=== PATIENT | male | born 1990 | race Two or more races ===

== ENCOUNTER 2023-03-20 18:05 | Emergency (ER) | payer MEDICAID, OTHER ==
[~2023-03-20] VITALS: Ht 175.3 cm; Wt 70.0 kg
[~2023-03-20 18:05] MED LIST: ALBU18
[2023-03-20] MEDS ORDERED: IPRATROPIUM BROM 0.5 MG/2.5ML INH SOL NEB ONE (22:00)
[2023-03-20] MEDS ORDERED: DexAMETHasone SOD PHOS 10MG/1ML VIAL INJ IM ONE (22:00)
[2023-03-20] MEDS ORDERED: ALBUTEROL SULF 2.5 MG/0.5ML(0.5%) NEB SOLN NEB ONE (22:00)
[2023-03-20 22:28] LABS: Basophils # (auto) 0 10 ^3/uL (0-0.2); Basophils % (auto) 0.3 % (0.0-2.0); Eosinophils # (auto) 0.5 10 ^3/uL (0-0.8); Eosinophils % (auto) 4.8 % (0.0-7.0); Hematocrit 43.5 % (41.0-53.0); Hemoglobin 14.8 g/dL (13.5-17.5); Lymphocytes # (auto) 1.4 10 ^3/uL (0.4-5.4); Lymphocytes % (auto) 12.3 % (10.0-50.0); Mean Corpuscular Hemoglobin 30.5 pg (28.0-32.0); Mean Corpuscular Volume 89.9 fL (80.0-100.0); Monocytes # (auto) 0.9 10 ^3/uL (0-1.3); Monocytes % (auto) 7.7 % (0.0-12.0); Neutrophils # (auto) 8.3 10 ^3/uL (1.6-8.6); Neutrophils % (auto) 74.9 % (37.0-80.0); Nucleated Red Blood Cells % 0.1 %; Red Blood Cells 4.84 10^6/uL (4.5-5.90); Red Cell Distribution Width 13.6 % (11.8-14.3); White Blood Cell 11.1 10^3/uL (4.4-10.8)
[2023-03-20 22:48] LABS: Albumin 4.5 g/dL (3.4-5.0); Potassium 4.1 mmol/L (3.5-5.1)
[2023-03-20 22:52] LABS: BUN/Creatinine Ratio 18.6 (10.0-20.0); Bilirubin, Total 0.8 mg/dL (0.2-1.0); Total Protein 8.4 g/dL (6.4-8.2)
[2023-03-21] MEDS ORDERED: PRED20TA2 PO (04:45)
[2023-03-21] MEDS ORDERED: ALBU108A5 IN (04:45)
[2023-03-21 05:17] VITALS: BP 115/73
== END 2023-03-21 04:46 | disposition home or self-care (01) ==
LOC: ER 18:05
DX: J45.901 Unspecified asthma with (acute) exacerbation (principal); D72.829 Elevated white blood cell count, unspecified
CPT/HCPCS: 36415; 71046; 80053; 85025; 94640; 96372; 99284; J1100; J7644

== ENCOUNTER 2023-04-13 01:27 | Emergency (ER) | payer MEDICAID ==
[~2023-04-13] VITALS: Ht 177.8 cm; Wt 65.3 kg
[~2023-04-13 01:27] MED LIST changes: +ALBU108A5 IN; +PRED20TA2 PO
[2023-04-13] MEDS ORDERED: CLIN300C70 PO (02:29)
[2023-04-13] MEDS ORDERED: HUR60 MT (02:29)
[2023-04-13] MEDS ORDERED: IBUP-1456 PO (02:29)
[2023-04-13] MEDS ORDERED: methylPREDNISolone SOD SUCC 40 MG/ML VL IV ONE (02:30)
[2023-04-13] MEDS ORDERED: CLINDAMYCIN 600MG IV 50 ML IV ONE (02:30)
[2023-04-13] MEDS ORDERED: KETOROLAC TROMETH 30 MG/ML 1ML VIAL IV ONE (02:30)
[2023-04-13 03:35] VITALS: BP 124/76
== END 2023-04-13 03:57 | disposition home or self-care (01) ==
LOC: ER 01:27
DX: K04.7 Periapical abscess without sinus (principal); J45.909 Unspecified asthma, uncomplicated; F12.10 Cannabis abuse, uncomplicated; Z88.1 Allergy status to other antibiotic agents; Z88.6 Allergy status to analgesic agent
CPT/HCPCS: 96365; 96375; 99284; J1885; J2920; J3490

== ENCOUNTER 2023-08-30 03:40 | Emergency (ER) | payer MEDICAID ==
[~2023-08-30] VITALS: Ht 175.3 cm; Wt 74.0 kg
[~2023-08-30 03:40] MED LIST changes: +CLIN300C70 PO; +HUR60 MT; +IBUP-1456 PO
[2023-08-30] MEDS ORDERED: ALBUAER3 IN (04:51)
[2023-08-30] MEDS ORDERED: PRED20TA2 PO (04:51)
[2023-08-30] MEDS ORDERED: ALBUTEROL MEDNEB 2.5 mg/3ml NEB ONE (04:53)
[2023-08-30] MEDS ORDERED: IPRATROPIUM BROM 0.5 MG/2.5ML INH SOL NEB ONE (05:00)
[2023-08-30] MEDS ORDERED: methylPREDNISolone SOD SUCC 125 MG/2 ML VL IM ONE (05:00)
[2023-08-30] MEDS ORDERED: ALBUTEROL SULF 2.5 MG/0.5ML(0.5%) NEB SOLN NEB ONE (05:00)
[2023-08-30 07:01] VITALS: BP 136/85; PULSE 101; RESP 18; TEMP 97.9; O2SAT 97
== END 2023-08-30 07:05 | disposition home or self-care (01) ==
LOC: ER 03:40
DX: J45.901 Unspecified asthma with (acute) exacerbation (principal); F12.90 Cannabis use, unspecified, uncomplicated; Z76.0 Encounter for issue of repeat prescription
CPT/HCPCS: 94640; 99283; J7644

== ENCOUNTER 2024-06-10 11:52 | Emergency (ER) | payer MEDICAID ==
[~2024-06-10] VITALS: Ht 177.8 cm; Wt 77.3 kg
[~2024-06-10 11:52] MED LIST changes: +ALBUAER3 IN; +CLIN1CAP70 PO; -CLIN300C70 PO
[2024-06-10 12:07] VITALS: BP 128/79; PULSE 84; RESP 18; O2SAT 97
[2024-06-11] MEDS ORDERED: BUDE1AER5 IN (13:49)
[2024-06-11] MEDS ORDERED: ALBU108A5 IN (13:49)
== END 2024-06-10 13:06 | disposition left against medical advice (07) ==
LOC: EDBD 11:52 → ER 11:54
DX: S60.445A External constriction of left ring finger, initial encounter (principal); Z53.21 Procedure and treatment not carried out due to patient leaving prior to being seen by health care provider; W49.04XA Ring or other jewelry causing external constriction, initial encounter; Y93.89 Activity, other specified; Y92.89 Other specified places as the place of occurrence of the external cause; Y99.8 Other external cause status

== ENCOUNTER 2024-06-10 14:37 | Inpatient (IN) | payer MEDICAID ==
[~2024-06-10] VITALS: Ht 175.3 cm; Wt 78.0 kg
[2024-06-10] MEDS ORDERED: ACETAMINOPHEN 325 MG TAB PO PRN (17:00)
[2024-06-10 17:08] VITALS: BP 112/78; PULSE 62; RESP 19; TEMP 97.8; O2SAT 99
[2024-06-10] MEDS ORDERED: IBUPROFEN 800 MG TAB PO PRN (17:15)
[2024-06-10] MEDS ORDERED: NEOMYCIN-BACITRACIN-POLYM 15GM TOP OINT TOP SCH (17:15)
[2024-06-10] MEDS: cefTRIAXone 1GM/50ML D5W 50 ML IV ONE (17:25)
[2024-06-10] MEDS: SODIUM CHLORIDE 0.9% 1,000 ML IV SCH (17:25)
[2024-06-10] MEDS: HYDROcodone-ACET 5/325MG TAB PO PRN (17:29)
[2024-06-10 18:00] LABS: Basophils # (auto) 0 10 ^3/uL (0-0.2); Basophils % (auto) 0.6 % (0.0-2.0); Eosinophils # (auto) 0.3 10 ^3/uL (0-0.8); Eosinophils % (auto) 5.3 % (0.0-7.0); Hematocrit 39.6 % (41.0-53.0); Hemoglobin 13.4 g/dL (13.5-17.5); Lymphocytes # (auto) 2.2 10 ^3/uL (0.4-5.4); Lymphocytes % (auto) 37.5 % (10.0-50.0); Mean Corpuscular Hemoglobin 30.4 pg (28.0-32.0); Mean Corpuscular Hgb Conc. 33.8 g/dL (32.0-36.0); Mean Corpuscular Volume 89.8 fL (80.0-100.0); Monocytes # (auto) 0.6 10 ^3/uL (0-1.3); Monocytes % (auto) 9.9 % (0.0-12.0); Neutrophils # (auto) 2.8 10 ^3/uL (1.6-8.6); Neutrophils % (auto) 46.7 % (37.0-80.0); Nucleated Red Blood Cells % 0.1 %; Red Blood Cells 4.41 10^6/uL (4.5-5.90); Red Cell Distribution Width 13.7 % (11.8-14.3)
[2024-06-10 18:49] LABS: Chloride 105 mmol/L (98-107); Potassium 3.8 mmol/L (3.5-5.1); Sodium 138 mmol/L (136-145)
[2024-06-10 18:50] LABS: Anion Gap 8 (5-15); Calcium 9.6 mg/dL (8.7-10.4); Carbon Dioxide 25 mmol/L (20-30)
[2024-06-10 18:55] LABS: BUN/Creatinine Ratio 10.7 (10.0-20.0); Blood Urea Nitrogen 9 mg/dL (9-23); Glucose 72 mg/dL (74-106)
[2024-06-10 21:30] VITALS: PULSE 78; O2SAT 99
[2024-06-10] MEDS: ASCORBIC ACID 500 MG TAB PO SCH (21:36)
[2024-06-10 21:45] VITALS: O2SAT 99
[2024-06-10 22:30] VITALS: BP 96/53; PULSE 60; RESP 20; TEMP 97.7; O2SAT 96
[2024-06-11] VITALS (9 sets, daily range): BP systolic 110–133; BP diastolic 64–67; PULSE 58–78; RESP 16–20; TEMP 36.9; O2SAT 94–100
[2024-06-11 05:17] LABS: Basophils # (auto) 0 10 ^3/uL (0-0.2); Basophils % (auto) 0.7 % (0.0-2.0); Eosinophils # (auto) 0.3 10 ^3/uL (0-0.8); Eosinophils % (auto) 6.3 % (0.0-7.0); Hematocrit 37.2 % (41.0-53.0); Hemoglobin 12.5 g/dL (13.5-17.5); Lymphocytes # (auto) 2.3 10 ^3/uL (0.4-5.4); Lymphocytes % (auto) 42.7 % (10.0-50.0); Mean Corpuscular Hemoglobin 30.3 pg (28.0-32.0); Mean Corpuscular Hgb Conc. 33.5 g/dL (32.0-36.0); Mean Corpuscular Volume 90.5 fL (80.0-100.0); Monocytes # (auto) 0.6 10 ^3/uL (0-1.3); Monocytes % (auto) 10.6 % (0.0-12.0); Neutrophils # (auto) 2.2 10 ^3/uL (1.6-8.6); Neutrophils % (auto) 39.7 % (37.0-80.0); Nucleated Red Blood Cells % 0.1 %; Red Blood Cells 4.11 10^6/uL (4.5-5.90); Red Cell Distribution Width 14.1 % (11.8-14.3); White Blood Cell 5.5 10^3/uL (4.4-10.8)
[2024-06-11 05:32] LABS: Alanine Aminotransferase 19 U/L (7-40); Albumin 3.8 g/dL (3.2-4.8); Alkaline Phosphatase 102 U/L (46-116); Anion Gap 6 (5-15); Aspartate Aminotransferase 13 U/L (13-40); BUN/Creatinine Ratio 14.9 (10.0-20.0); Bilirubin, Total 0.6 mg/dL (0.2-1.0); Blood Urea Nitrogen 14 mg/dL (9-23); Calcium 8.8 mg/dL (8.7-10.4); Carbon Dioxide 27 mmol/L (20-30); Chloride 105 mmol/L (98-107); Glucose 109 mg/dL (74-106); Potassium 3.9 mmol/L (3.5-5.1); Sodium 138 mmol/L (136-145)
[2024-06-11 05:33] LABS: Total Protein 6.5 g/dL (5.7-8.2)
[2024-06-11 07:22] LABS: CRP High Sensitivity 0.02 mg/dL (<1.0)
[2024-06-11] MEDS: ZINC SULFATE 220mg CAP or TAB PO SCH (10:08)
[2024-06-11] MEDS: MULTIPLE VITAMIN TAB PO SCH (10:09)
[2024-06-11] MEDS: cefTRIAXone 1GM/50ML D5W 50 ML IV SCH (10:09)
[2024-06-11] MEDS ORDERED: BUDESONIDE (INHALATION) 0.5 MG/2 ML NEB NEB ONE (13:45)
[2024-06-11] MEDS ORDERED: ALBUTEROL SULF 2.5 MG/0.5ML(0.5%) NEB SOLN NEB ONE (13:45)
[2024-06-11] MEDS ORDERED: ALBU108A5 IN (13:49)
[2024-06-11] MEDS ORDERED: BUDE1AER5 IN (13:49)
[2024-06-11] MEDS: ALBUTEROL SULF 2.5 MG/0.5ML(0.5%) NEB SOLN NEB PRN (15:13)
== END 2024-06-11 18:30 | disposition home or self-care (01) | DRG 351 ==
LOC: ER 14:37 → OVERFLOW 17:03 → CENTRAL 22:30
PROVIDERS: ADMIT Nurse Practitioner Family; ATTEND Nurse Practitioner Family
DX: S69.82XA Other specified injuries of left wrist, hand and finger(s), initial encounter (principal); D64.9 Anemia, unspecified; J45.909 Unspecified asthma, uncomplicated; F19.10 Other psychoactive substance abuse, uncomplicated; X58.XXXA Exposure to other specified factors, initial encounter; Y93.89 Activity, other specified; Y92.89 Other specified places as the place of occurrence of the external cause; Y99.8 Other external cause status; Z59.00 Homelessness unspecified
CPT/HCPCS: 36415; 73140; 80048; 80053; 80061; 83036; 83605; 85025; 86141; 94640; 96365; 99291; G0378

== ENCOUNTER 2024-09-22 08:02 | Emergency (ER) | payer MEDICAID ==
[~2024-09-22] VITALS: Ht 177.8 cm; Wt 77.2 kg
[~2024-09-22 08:02] MED LIST changes: +BUDE1AER5 IN; -CLIN1CAP70 PO; -PRED20TA2 PO
--- NOTE | 2024-09-22 08:54 | ED.PDOC ---
SOB-HPI HPI Comments 34y M who presents to the ED via EMS for chief complaint of shortness of breath. Pt states he has been having shortness of breath since 000 this AM. Pt states he has history of asthma and states he has ran out of his inhaler. Pt states he is having associated congestion, rhinorrhea, and cough ever since. Pt in the ED, in no noted distress and has stable vitals with 99% 02 sat on room air. Pt otherwise denies any other symptoms at this time. Chief Complaint: Shortness of Breath Time Seen by MD: 08:50 Primary Care Provider: NONE Reviewed notes: Glue Line Operator Notes, Medications, Allergies Information Source: Patient Mode of Arrival: EMS Brought in by: EMS Past Medical History PAST MEDICAL HISTORY: Asthma Surgical History: Denies all surgeries Family History Family History: Unknown Social History Smoker: Other Alcohol: Denies ETOH Use Drugs: Marijuana Lives In: Home Constitutional: denies: chills, diaphoresis, fatigue, fever, malaise, sweats, weakness, others EENTM: denies: blurred vision, double vision, ear bleeding, ear discharge, ear drainage, ear pain, ear ringing, eye pain, eye redness, hearing loss, mouth pain, mouth swelling, nasal discharge, nose bleeding, nose congestion, nose pain, photophobia, tearing, throat pain, throat swelling, voice changes, others Respiratory: reports: shortness of breath; denies: cough, hemoptysis, orthopnea, SOB at rest, SOB with excertion, stridor, wheezing, others Cardiovascular: denies: chest pain, dizzy spells, diaphoresis, Dyspnea on exertion, edema, irregular heart beat, left arm pain, lightheadedness, palpitations, PND, syncope, others Gastrointestinal: denies: abdomen distended, abdominal pain, blood streaked bowels, constipated, diarrhea, dysphagia, difficulty swallowing, hematemesis, melena, nausea, poor appetite, poor fluid intake, rectal bleeding, rectal pain, vomiting, others Genitourinary: denies: burning, dysuria, flank pain, frequency, hematuria, incontinence, penile discharge, penile sore, pain, testicle pain, testicle swelling, urgency, others Neurological: denies: dizziness, fainting, headache, left sided numbness, left sided weakness, numbness, paresthesia, pre-existing deficit, right sided numbness, right sided weakness, seizure, speech problems, tingling, tremors, weakness, others Musculoskeletal: denies: back pain, gout, joint pain, joint swelling, muscle pain, muscle stiffness, neck pain, others Integumetry: denies: bruises, change in color, change in hair/nails, dryness, laceration, lesions, lumps, rash, wounds, others Allergic/Immunocompromised: denies: Difficulty Healing, Frequent Infections, Hives, Itching, others Hematologic/Lymphatic: denies: anemia, blood clots, easy bleeding, easy bruising, swollen glands, others Endocrine: denies: excessive hunger, excessive sweating, excessive thirst, excessive urination, flushing, intolerance to cold, intolerance to heat, unexplained weight gain, unexplained weight loss, others Psychiatric: denies: anxiety, bipolar disorder, depression, hopeless, panic dis order, schizophrenia, sleepless, suicidal, others All Other Systems: Reviewed and Negative Physical Exam General Appearance: No Apparent Distress, Normal HEENT: Normal ENT Inspection, Pharynx Normal, TMs Normal Neck: Full Range of Motion, Non-Tender, Normal, Normal Inspection Respiratory: Wheezing (bilateral wheezing ) Cardiovascular: No Edema, No JVD, No Murmur, No Gallop, Normal Peripheral Pulses, Regular Rate/Rhythm Breast Exam: Deferred Gastrointestinal: No Organomegaly, Non Tender, No Pulsatile Mass, Normal Bowel Sounds, Soft Genitalia: Deferred Pelvic: Deferred Rectal: Deferred Extremities: No calf tenderness, Normal capillary refill, Normal inspection, Normal range of motion, Non-tender, No pedal edema Musculoskeletal : Apperance: Normal Neurologic: Alert, transfer controller II-XII nml as Tested, No Motor Deficits, Normal Affect, Normal Mood, No Sensory Deficits Cerebellar Function: Normal Reflexes: Normal Skin: Dry, Normal Color, Warm Lymphatic: No Adenopathy Was a procedure done? Was a procedure done?: No Differential Dx Differential Diagnosis: Anxiety, Asthma, Bronchitis, Pneumonia, Respiratory Distress X-Ray, Labs, Meds, VS Vital Signs Date Time Temp Pulse Resp B/P (MAP) Pulse Ox O2 Delivery O2 Flow Rate FiO2 09/22/24 09:30 97.5 79 17 131/77 (95) 99 97.5 09/22/24 09:19 97 Room Air* 0 21 09/22/24 09:19 18 97 Room Air* 0 21 09/22/24 08:03 98.2 86 18 145/60 (88) 100 09/22/24 08:03 18 99 Room Air* 0 21 Current Medications Medications (Trade) Dose Ordered Sig/Jaison Route Start Time Stop Time Status Last Admin Albuterol (Ventolin Medneb) 5 mg ONCE ONCE NEB 09/22/24 09:00 09/22/24 09:01 DC 09/22/24 09:19 Ipratropium [employer] (Atrovent Medneb) 0.5 mg ONCE ONCE NEB 09/22/24 09:00 09/22/24 09:01 DC 09/22/24 09:19 Prednisone 40 mg ONCE ONCE PO 09/22/24 09:00 09/22/24 09:01 DC 09/22/24 09:22 Time of 1ST Reevaluation: 09:20 Reevaluation 1ST: Unchanged Patient Education/Counseling: Diagnosis, Treatment Family Education/Counseling: No Family Present Departure 1 Departure Time of Disposition: 09:50 (Patient presented for asthma exacerbation we will discharge patient home with the inhaler) Impression: Primary Impression: Asthma exacerbation Qualified Codes: J45.21 - Mild intermittent asthma with (acute) exacerbation Disposition: 01 HOME / SELF CARE / HOMELESS Condition: Stable e-Prescriptions Albuterol Sulfate (VENTOLIN MDI) 90 Mcg Ih 90 MCG IN QID PRN for 7 Days, #1 INH Prov: DARON COLE MD 09/22/24 Discharged With: Self Critical Care Note Critical Care Time?: No Stability Stability form required: No Heart Score Heart Score: Heart Score Response (Comments) Value History N/A 0 EKG N/A 0 Age N/A 0 Risk Factors N/A 0 Troponin N/A 0 Total 0 I personally scribed for DARON COLE MD ([email or web address]) on 09/22/24 at 08:54. Electronically submitted by Leora Rossi ([email or web address]). DARON COLE MD Sep 22, 2024 08:54
[2024-09-22] MEDS: ALBUTEROL SULF 2.5 MG/0.5ML(0.5%) NEB SOLN NEB ONE (09:19)
[2024-09-22] MEDS: IPRATROPIUM BROM 0.5 MG/2.5ML INH SOL NEB ONE (09:19)
[2024-09-22] MEDS: predniSONE 20 MG TAB PO ONE (09:22)
[2024-09-22 09:30] VITALS: O2SAT 99
[2024-09-22] MEDS ORDERED: ALBUAER3 IN (09:53)
[2024-09-22 10:38] VITALS: BP 125/78; PULSE 85; RESP 16; TEMP 98.2; O2SAT 98
== END 2024-09-22 10:46 | disposition home or self-care (01) ==
LOC: EDBD 08:02 → ER 08:02
DX: J45.901 Unspecified asthma with (acute) exacerbation (principal); F12.10 Cannabis abuse, uncomplicated; F17.200 Nicotine dependence, unspecified, uncomplicated
CPT/HCPCS: 94640; 99283; J7512

== ENCOUNTER 2025-03-07 02:17 | Emergency (ER) | payer MEDICAID ==
[~2025-03-07] VITALS: Ht 175.3 cm; Wt 77.3 kg
[2025-03-07 02:25] VITALS: BP 141/94; PULSE 77; RESP 24; TEMP 97.6; O2SAT 96
== END 2025-03-07 02:45 | disposition left against medical advice (07) ==
LOC: ER 02:17 → EDBD 02:17 → ER 02:45
DX: R06.02 Shortness of breath (principal); R05.9 Cough, unspecified; R06.2 Wheezing; Z53.21 Procedure and treatment not carried out due to patient leaving prior to being seen by health care provider

== ENCOUNTER 2025-03-11 02:03 | Emergency (ER) | payer MEDICAID ==
[~2025-03-11] VITALS: Ht 177.8 cm; Wt 160.0 kg
--- NOTE | 2025-03-11 02:33 | ED.PDOC ---
SOB-HPI HPI Comments 34-year-old male came to ER due to shortness of breath. Patient is homeless, and does have history of asthma. States he ran out of his albuterol inhaler over a week ago. Patient coming in shortness of breath and wheezing. Denies any fever. Patient wants his albuterol inhalers refilled. No other complaints at this time Chief Complaint: Shortness of Breath Time Seen by MD: 02:32 Primary Care Provider: NONE Reviewed notes: Nurses Notes Information Source: Patient Mode of Arrival: Ambulatory Severity: Moderate Timing: Hours Duration: Since onset Context: With Light Exertion PE Risk Factors: None History of: Asthma Prehospital treatment: Breathing Tx Review of Systems REVIEW OF SYSTEMS: No fever, no chills, or fatigue HEENT: No sore throat, no earache, no congestion, no neck pain. Cardiac: No chest pain. No palpitations. Lungs: (+) shortness of breath, no cough. (+) wheezing GI: No nausea, no vomiting, no diarrhea, no constipation, no abdominal pain : No dysuria, frequency, or urgency. No hematuria. Musculoskeletal: No joint pain , no joint swelling, no extremity edema. Skin: No rash, no itching. Neuro: No headache, no dizziness, no weakness Vital Signs Vital Signs Date Time Temp Pulse Resp B/P (MAP) Pulse Ox O2 Delivery O2 Flow Rate FiO2 03/11/25 04:18 Room Air* 0 21 03/11/25 04:15 98.6 84 16 122/65 (84) 96 98.6 Physical Exam General: Awake, alert and oriented. No acute distress. Skin: Skin in warm, dry and intact. Appropriate color for ethnicity. Nailbeds pink with no cyanosis. HEENT: The head is normocephalic and atraumatic. Conjunctivae are clear without exudates or hemorrhage. Sclera is non-icteric. EOM are intact. No signs of nystagmus. Eyelids are normal in appearance without swelling or lesions. Oral mucosa is pink and moist Neck: The neck is supple with normal range of motion. No JVD. Cardiac: Heart rate and rhythm are normal. No murmurs, gallops, or rubs are auscultated. Respiratory: No signs of respiratory distress. Positive bilateral wheezes. Abdominal: Abdomen is soft, non-tender without distention. Bowel sounds are present and normoactive in all four quadrants. Extremities: Upper and lower extremities are atraumatic in appearance without deformity or edema. Neurological: The patient is awake, alert and oriented to person, place, and time with normal speech. Speech is clear. There is no facial asymmetry. Psychiatric: Appropriate mood and affect. Good judgement and insight. No visual or auditory hallucinations. Past Medical History PAST MEDICAL HISTORY: Asthma Surgical History: Denies all surgeries Family History Family History: Unknown Social History Smoker: Non-Smoker Alcohol: Denies ETOH Use Drugs: Marijuana Lives In: Homeless EKG EKG : Pulse Rate (adult): 65 Cardiac Rhythm: NSR Was a procedure done? Was a procedure done?: No Differential Dx Differential Diagnosis: Asthma, Bronchitis, Pneumonia, Respiratory Distress, URI, Other X-Ray, Labs, Meds, VS Vital Signs Date Time Temp Pulse Resp B/P (MAP) Pulse Ox O2 Delivery O2 Flow Rate FiO2 03/11/25 04:18 Room Air* 0 21 03/11/25 04:15 98.6 84 16 122/65 (84) 96 98.6 03/11/25 02:50 18 96 Room Air* 0 21 03/11/25 02:33 65 03/11/25 02:19 65 03/11/25 02:03 78 16 122/78 (93) 98 Current Medications Medications (Trade) Dose Ordered Sig/Jaison Route Start Time Stop Time Status Last Admin Albuterol (Ventolin Medneb) 2.5 mg ONCE ONCE NEB 03/11/25 02:30 03/11/25 02:31 DC 03/11/25 02:49 Prednisone 40 mg ONCE ONCE PO 03/11/25 02:30 03/11/25 02:31 DC 03/11/25 04:17 Time of 1ST Reevaluation: 02:30 Reevaluation 1ST: Unchanged Patient Education/Counseling: Need For Follow Up Family Education/Counseling: Need For Follow Up Departure 1 Departure Time of Disposition: 02:35 Impression: Primary Impression: Asthma Disposition: 01 HOME / SELF CARE / HOMELESS Condition: Stable Additional Instructions: ED DISCHARGE INSTRUCTIONS Instructions: Please read all instructions provided in this packet carefully. Although you have been discharged from the Emergency Department, this does not mean that you have a "clean bill of health". No definitive diagnosis for your symptoms has been made today. It is possible that you are in the process of developing a serious illness. This is why you must return to the ED without fail if any new or worsening symptoms (especially if your symptoms include chest pain, trouble breathing, abdominal pain, fever, headache, confusion, trouble seeing, or trouble walking) It is also very important that you see a primary care doctor within the next 3-5 days to follow up. If you are unable to get an appointment, return to the ED for re-evaluation. SHORTNESS OF BREATH EDUCATION Shortness of breath has many causes. Sometimes conditions such as anxiety can lead to shortness of breath. Some people get mild shortness of breath when they exercise. Trouble breathing also can be a symptom of a serious problem, such as asthma, lung disease, emphysema, heart problems, and pneumonia. If your shortness of breath continues, you may need tests and treatment. Watch for any changes in your breathing and other symptoms. Follow-up care is a echevarria part of your treatment and safety. Be sure to make and go to all appointments, and call your doctor if you are having problems. It's also a good idea to know your test results and keep a list of the medicines you take. How can you care for yourself at home? Do not smoke or allow others to smoke around you. If you need help quitting, talk to your doctor about stop-smoking programs and medicines. These can increase your chances of quitting for good. Get plenty of rest and sleep. Take your medicines exactly as prescribed. Call your doctor if you think you are having a problem with your medicine. Find healthy ways to deal with stress. Exercise daily. Get plenty of sleep. Eat regularly and well. When should you call for help? Call 911 anytime you think you may need emergency care. For example, call if: You have severe shortness of breath. You have symptoms of a heart attack. These may include: Chest pain or pressure, or a strange feeling in the chest. Sweating. Shortness of breath. Nausea or vomiting. Pain, pressure, or a strange feeling in the back, neck, jaw, or upper belly or in one or both shoulders or arms. Lightheadedness or sudden weakness. A fast or irregular heartbeat. After you call 911, the centrifuge separator operator may tell you to chew 1 adult-strength or 2 to 4 low-dose aspirin. Wait for an ambulance. Do not try to drive yourself. Call your doctor now or seek immediate medical care if: Your shortness of breath gets worse or you start to wheeze. Wheezing is a high- pitched sound when you breathe. You wake up at night out of breath or have to prop your head up on several pillows to breathe. You are short of breath after only light activity or while at rest. Watch closely for changes in your health, and be sure to contact your doctor if: You do not get better over the next 1 to 2 days. Credits for Shortness of Breath: Care Instructions Current as of: June 01, 2024 Author: [employer] Staff e-Prescriptions Prednisone (Prednisone) 20 Mg Tab 20 MG PO DAILY for 5 Days, #5 MG Prov: CINDY STEARNS MD 03/11/25 Albuterol Sulfate (VENTOLIN MDI) 90 Mcg Ih 90 MCG IN Q4HPRN PRN for 30 Days, #1 INH Prov: CINDY STEARNS MD 03/11/25 Comments 34-year-old male with known history of asthma ran out of his asthma inhaler. He is not hypoxic. Feeling improved with treatment by EMS and in the ED. Patient is felt stable for discharge home to follow up with the primary care provider. Provided with a refill of albuterol inhaler. Patient well-appearing, nontoxic. Advised prompt follow-up with PCP, return to the ED with any new, worsening or concerning symptoms. - I reviewed the following notes from the pt's past medical encounters: N/A The following tests were ordered, and results were reviewed by me: (See diagnostic results section) The following test were independently interpreted by me: N/A Additional information was gathered from interviewing the following independent historians: N/A I reviewed and agreed with the following test results read by other providers: N/A I discussed treatments and results with patient Decision regarding hospitalization or escalation of hospital level of care: Risks and benefits of admission for further treatment of patient's condition was considered however due to patient's stable condition patient will be discharged to follow up closely or return to care for worsening of condition or inability to follow up. Critical Care Note Critical Care Time?: No Stability Stability form required: No Heart Score Heart Score: Heart Score Response (Comments) Value History N/A 0 EKG N/A 0 Age N/A 0 Risk Factors N/A 0 Troponin N/A 0 Total 0 I personally scribed for CINDY STEARNS MD ([email or web address]) on 03/11/25 at 02:33. Electronically submitted by Mukund Rainey ([email or web address]). CINDY STEARNS MD March 11, 2025 02:33
[2025-03-11] MEDS ORDERED: PRED20TA2 PO (02:36)
[2025-03-11] MEDS ORDERED: ALBUAER3 IN (02:36)
[2025-03-11] MEDS: ALBUTEROL SULF 2.5 MG/0.5ML(0.5%) NEB SOLN NEB ONE (02:49)
[2025-03-11 04:15] VITALS: BP 122/65; PULSE 84; RESP 16; TEMP 98.6; O2SAT 96
[2025-03-11] MEDS: predniSONE 20 MG TAB PO ONE (04:17)
--- NOTE | 2025-03-17 14:34 | ECG ---
[facility] Test Date: 2025-03-11 Test Time: 02:19:01 Pat Name: MARYJO NELSON Department: ED Room: Gender: M Manager Of It: maxine : 1990 Requested By: CINDY STEARNS Order Number: [id number] Reading MD: Tal Herrera Measurements Intervals [place] Rate: 65 P: 41 PA: 158 QRS: 75 QRSD: 93 T: 66 QT: 421 QTc: 438 Interpretive Statements Sinus rhythm Ventricular premature complex Electronically Signed On 03-18-2025 20:55:37 PDT by Tal Herrera Please click the below link to view image of tracing.
== END 2025-03-11 04:26 | disposition home or self-care (01) ==
LOC: EDBD 02:03 → ER 02:03
DX: J45.909 Unspecified asthma, uncomplicated (principal)
CPT/HCPCS: 94640; 99283; J7512; 93005

== ENCOUNTER → 2025-03-14 05:16 | Emergency (ER) | payer MEDICAID ==
[~2025-03-14] VITALS: Ht 172.7 cm; Wt 79.4 kg
[~2025-03-14 05:16] MED LIST changes: +PRED20TA2 PO
[2025-03-14 05:25] VITALS: BP 146/95; PULSE 66; RESP 24; TEMP 97.9; O2SAT 100
== END | disposition left against medical advice (07) ==
LOC: EDUNIT# 05:16 → ER 05:16 → EDBD 05:16
DX: R06.02 Shortness of breath (principal); Z53.21 Procedure and treatment not carried out due to patient leaving prior to being seen by health care provider

== ENCOUNTER 2025-04-16 18:31 | Emergency (ER) | payer MEDICAID ==
[~2025-04-16] VITALS: Ht 175.3 cm; Wt 68.9 kg
--- NOTE | 2025-04-16 18:43 | ED.PDOC ---
SOB-HPI HPI Comments 34-year-old homeless asthmatic male presents to the ED chief complaint shortness of breath. Patient states over the past 2 weeks his asthma has worsened. He also notes it has ran out of his albuterol rescue inhaler. He reports coughing up yellow mucus. He does note use of marijuana in methamphetamine last used ye sterday. States last time he saw his primary care was over 10 years ago for management. He denies chest pain, difficulty breathing, fever, chills, nausea or vomiting. Chief Complaint: Shortness of Breath Time Seen by MD: 18:35 Primary Care Provider: NONE Reviewed notes: Nurses Notes, Medications, Allergies Information Source: Patient Past Medical History PAST MEDICAL HISTORY: Asthma Surgical History: Denies all surgeries Family History Family History: Unknown Social History Smoker: Non-Smoker Alcohol: Denies ETOH Use Drugs: Marijuana, Methamphetamine Lives In: Homeless Constitutional: denies: chills, diaphoresis, fatigue, fever, malaise, sweats, weakness, others EENTM: denies: blurred vision, double vision, ear bleeding, ear discharge, ear drainage, ear pain, ear ringing, eye pain, eye redness, hearing loss, mouth pain, mouth swelling, nasal discharge, nose bleeding, nose congestion, nose pain, photophobia, tearing, throat pain, throat swelling, voice changes, others Respiratory: reports: cough, shortness of breath, wheezing; denies: hemoptysis, orthopnea, SOB at rest, SOB with excertion, stridor, others Cardiovascular: denies: chest pain, dizzy spells, diaphoresis, Dyspnea on exertion, edema, irregular heart beat, left arm pain, lightheadedness, palpitations, PND, syncope, others Gastrointestinal: denies: abdomen distended, abdominal pain, blood streaked bowels, constipated, diarrhea, dysphagia, difficulty swallowing, hematemesis, melena, nausea, poor appetite, poor fluid intake, rectal bleeding, rectal pain, vomiting, others Genitourinary: denies: burning, dysuria, flank pain, frequency, hematuria, incontinence, penile discharge, penile sore, pain, testicle pain, testicle swelling, urgency, others Neurological: denies: dizziness, fainting, headache, left sided numbness, left sided weakness, numbness, paresthesia, pre-existing deficit, right sided numbness, right sided weakness, seizure, speech problems, tingling, tremors, weakness, others Musculoskeletal: denies: back pain, gout, joint pain, joint swelling, muscle pain, muscle stiffness, neck pain, others Integumetry: denies: bruises, change in color, change in hair/nails, dryness, laceration, lesions, lumps, rash, wounds, others Allergic/Immunocompromised: denies: Difficulty Healing, Frequent Infections, Hives, Itching, others Hematologic/Lymphatic: denies: anemia, blood clots, easy bleeding, easy bruising, swollen glands, others Endocrine: denies: excessive hunger, excessive sweating, excessive thirst, excessive urination, flushing, intolerance to cold, intolerance to heat, unexplained weight gain, unexplained weight loss, others Psychiatric: denies: anxiety, bipolar disorder, depression, hopeless, panic disorder, schizophrenia, sleepless, suicidal, others Physical Exam General Appearance: No Apparent Distress, Normal HEENT: Normal ENT Inspection, Pharynx Normal, TMs Normal Neck: Full Range of Motion, Non-Tender Respiratory: Decreased Breath Sounds, No Accessory Muscle Use, No Respiratory Distress, Wheezing Cardiovascular: No Edema, No JVD, No Murmur, No Gallop, Normal Peripheral Pulses, Regular Rate/Rhythm Breast Exam: Deferred Gastrointestinal: No Organomegaly, Non Tender, Soft Genitalia: Deferred Pelvic: Deferred Rectal: Deferred Extremities: No calf tenderness, Normal range of motion Musculoskeletal : Apperance: Normal Neurologic: Alert, No Motor Deficits, Normal Affect, Normal Mood, No Sensory Deficits Cerebellar Function: Normal Reflexes: Normal Skin: Dry, Normal Color, Warm Lymphatic: No Adenopathy Was a procedure done? Was a procedure done?: No Differential Dx Differential Diagnosis: Asthma, Bronchitis, Pneumonia, Pneumothorax, URI X-Ray, Labs, Meds, VS Vital Signs Date Time Temp Pulse Resp B/P (MAP) Pulse Ox O2 Delivery O2 Flow Rate FiO2 04/16/25 19:54 16 98 Room Air* 0 21 04/16/25 19:32 98.0 100 19 120/63 (82) 95 98.0 04/16/25 18:57 24 95 Room Air* 0 21 21 04/16/25 18:46 Room Air* 0 21 04/16/25 18:39 97.3 109 16 133/62 (85) 94 97.3 Current Medications Medications (Trade) Dose Ordered Sig/Jaison Route Start Time Stop Time Status Last Admin Albuterol (Ventolin Medneb) 5 mg ONCE ONCE NEB 04/16/25 18:45 04/16/25 18:46 DC 04/16/25 18:57 Ipratropium [place] (Atrovent Medneb) 0.5 mg ONCE ONCE NEB 04/16/25 18:45 04/16/25 18:46 DC 04/16/25 18:58 Dexamethasone Sodium Phosphate (Decadron Injection) 10 mg ONCE ONCE IM 04/16/25 18:45 04/16/25 18:46 DC 04/16/25 19:54 X-Ray, Labs, Meds, VS Comment GIVEN DUO NEB AND DECADRON 10 MG IM REPORTS IMPROVEMENT IN BREATHING REQUESTING DISCHARGE AT THIS TIME. LUNG SOUNDS CLEAR AND EQUAL BILATERAL. WE WILL SCRIPT PATIENT IS REFILL OF ALBUTEROL WE WILL START PATIENT ON A DAILY INHALED STEROID AND MEDICATION FOR COUGH AND DECONGESTION. ADVISED TO TAKE MEDICATIONS PRESCRIBED SIDE EFFECTS DISCUSSED. FOLLOW UP WITH HIS PRIMARY OR CALL THE BACK OF HIS INSURANCE CARD AND SELECTIVE PRIMARY CARE IN HIS NETWORK FOR FURTHER REFILLS. ER RETURN PRECAUTIONS GIVEN PATIENT INDICATES UNDERSTANDING AND AGREES WITH DISCHARGE PLAN OF CARE. Time of 1ST Reevaluation: 18:46 Reevaluation 1ST: Unchanged Time of 2ND Reevaluation: 20:07 Reevaluation 2ND: Improved Patient Education/Counseling: Diagnosis, Treatment, Prognosis, Need For Follow Up Family Education/Counseling: No Family Present Departure 1 Departure Time of Disposition: 20:07 Impression: Primary Impression: Asthma exacerbation Qualified Codes: J45.21 - Mild intermittent asthma with (acute) exacerbation Disposition: 01 HOME / SELF CARE / HOMELESS Condition: Stable e-Prescriptions Guaifenesin (Mucinex) 600 Mg Tab 1 TAB PO BID PRN for 7 Days, #14 TAB Prov: BETSY MARTINEZP 04/16/25 Budesonide-Formoterol Fumarate (Budesonide/Formoterol Fum 80-4.5 Mcg/Act) 1 Aer Aer 1 AER IN DAILY for 30 Days, #1 AER 2 Refills Prov: BETSY MARTINEZP 04/16/25 Albuterol Sulfate (Albuterol Sulfate Hfa) 108 Mcg/Act Aer 108 MCG IN TID PRN for 10 Days, #1 AER 2 Refills Prov: BETSY MARTINEZ 04/16/25 Discharged With: Self Critical Care Note Critical Care Time?: No Stability Stability form required: No Heart Score Heart Score: Heart Score Response (Comments) Value History N/A 0 EKG N/A 0 Age <45 0 Risk Factors N/A 0 Troponin N/A 0 Total 0 BETSY MARTINEZ Apr 16, 2025 18:43
[2025-04-16] MEDS: ALBUTEROL SULF 2.5 MG/0.5ML(0.5%) NEB SOLN NEB ONE (18:57)
[2025-04-16] MEDS: IPRATROPIUM BROM 0.5 MG/2.5ML INH SOL NEB ONE (18:58)
[2025-04-16 19:32] VITALS: BP 120/63; PULSE 100; TEMP 98
--- NOTE | 2025-04-16 19:41 | DVH ---
EXAM: XY CHEST TWO VIEWS ROUTINE CLINICAL HISTORY: sob TECHNIQUE: Frontal and lateral views of the chest WID: COMPARISON: XY CHEST TWO VIEWS ROUTINE on DOS: 03/20/23 FINDINGS: Lines and tubes: None Chest: The heart size and pulmonary vasculature is within normal limits. No pleural effusion, pneumothorax, or consolidation. The osseous structures are grossly intact. IMPRESSION: No acute cardiopulmonary abnormality.
[2025-04-16 19:54] VITALS: RESP 16; O2SAT 98
[2025-04-16] MEDS: DexAMETHasone SOD PHOS 10MG/1ML VIAL INJ IM ONE (19:54)
[2025-04-16] MEDS ORDERED: BUDE1AER5 IN (20:09)
[2025-04-16] MEDS ORDERED: ALBU108A5 IN (20:09)
[2025-04-16] MEDS ORDERED: GUAI600T78 PO (20:10)
== END 2025-04-16 20:30 | disposition home or self-care (01) ==
LOC: ER 18:31
DX: J45.901 Unspecified asthma with (acute) exacerbation (principal); F12.90 Cannabis use, unspecified, uncomplicated; F19.90 Other psychoactive substance use, unspecified, uncomplicated; Z59.00 Homelessness unspecified
CPT/HCPCS: 71046; 94640; 96372; 99283; J1100

== ENCOUNTER 2025-06-13 16:19 | Emergency (ER) | payer MEDICAID ==
[~2025-06-13] VITALS: Ht 175.3 cm; Wt 75.0 kg
--- NOTE | 2025-06-13 16:42 | ED.PDOC ---
SOB-HPI HPI Comments 34-year-old male brought in by EMS presents with a chief complaint of SOB x 4 days with associated cough. Patient is homeless and has been out in the sun, reporting that he has been dehydrated and has had a productive cough with white phlegm. Patient was 95% on room air and was given a DuoNeb treatment treatment by EMS and was sating at 99% on the breathing treatment. Patient was also given 1L of fluid en route by EMS. Patient reports that he feels better and not SOB after the dual nebulizer treatment. Patient has been out of his albuterol inhaler. PMHx: Asthma, homelessness PSHx: None HPI: Poor Historian. REVIEW OF SYSTEMS: CONSTITUTIONAL: Denies acute: fever, diaphoresis, chills, generalized weakness. HEAD: Denies acute: headache, photophobia Eyes: Denies acute: Double vision, vision loss, eye pain, eye discharge. EARS: Denies acute: tinnitus, hearing loss, ear discharge, ear pain, THROAT: Denies acute: sore throat, swelling, difficulty swallowing , pain with swallowing, change in voice. NECK: Denies acute: neck pain, neck swelling, stiff neck. HEART: Denies acute : chest pain, palpitations, LUNGS: Denies acute: hemoptysis ABDOMEN: Denies acute: abdominal pain, Nausea, Vomiting, diarrhea, melena , hematemesis, hematochezia SKIN: Denies acute: rash, redness, lesions, itchiness. EXTREMITIES: Denies acute: calf pain, numbness, tingling, weakness, denies pain in extremity. Denies acute: Low back pain. Neuro: Denies acute: focal neurological deficit, motor or sensory focal neurological deficit, tremors, seizure like activity, confusion, dizziness, change in mental status, loss of bowel or bladder function, cauda equina like symptoms. : Denies acute: dysuria, hematuria, flank pain, increase in urinary frequency. PSYCH: Denies acute: hallucination, suicidal ideation, homicidal ideation. PHYSICAL EXAM: General: ---mild-----acute distress, awake and alert. Head: normocephalic, atraumatic. Neck: supple, trachea is midline, no swelling. Throat: Normal phonation. Eyes:, no erythema, no purulent discharge, no proptosis, no icterus. Heart: regular rate, regular rhythm, no significant murmur appreciated. Lungs: no apparent respiratory distress, Able to speak in full sentences. Slight right-sided wheezing, no rhonchi, no crackles. No stridors Abdomen: non tender to palpation, non distended, soft, no guarding, no rebound, + bowel sounds. Neuro: Awake, Alert, oriented to name, self, situation, follows commands GCS=15. Speech is normal. Skin: no petechia, no purpura, no cyanosis, non-pale, not jaundice. Lower extremities: --no - Pitting edema no deformity, no focal swelling, no calf TTP. Makes eye contact. moves all four extremities. Face: no apparent facial droop. ED COURSE: DISCLAIMER: This medical document was created using an electronic medical record system with voice recognition software and computerized dictation system. Although this document has been carefully reviewed, there might still be some phonetic and typographical errors. Occasional wrong-word or "sound-alike" substitutions may have occurred due to the inherent limitations of voice recognition software. These areas are purely typographical due to imperfections of the software programs and do not reflect any compromise in the patient's medical care. Please read the chart carefully and recognize, using context, where these substitutions have occurred. Chief Complaint: Shortness of Breath Time Seen by MD: 16:26 Primary Care Provider: NONE Reviewed notes: Medications, Allergies Information Source: Patient, Emergency Med Personnel Mode of Arrival: EMS Past Medical History PAST MEDICAL HISTORY: Asthma Surgical History: Denies all surgeries Family History Family History: Unknown Social History Smoker: Non-Smoker Alcohol: Denies ETOH Use Drugs: Marijuana, Methamphetamine Lives In: Homeless Was a procedure done? Was a procedure done?: No Differential Dx Differential Diagnosis: Other (DDx include ACS, unstable angina, anxiety, PE, pneumothroax, neoplasm, cardiac ischemia, COPD, asthma, CHF, pleural effusion, tobacco abuse, pneumonia, hypoxia, hypercapnia, anemia., infection/sepsis., pulmonary edema. Asthma, Cardiac tamponade, infection.) X-Ray, Labs, Meds, VS Vital Signs Date Time Temp Pulse Resp B/P (MAP) Pulse Ox O2 Delivery O2 Flow Rate FiO2 06/13/25 22:01 66 16 98 Room Air 06/13/25 21:58 97.5 66 16 124/81 (95) 98 97.5 06/13/25 17:22 109 18 92 Room Air* 0 21 06/13/25 17:22 18 92 Room Air* 0 21 06/13/25 17:22 109 18 115/69 (84) 92 06/13/25 16:47 18 93 Room Air* 0 21 06/13/25 16:38 88 06/13/25 16:26 97.6 110 20 125/76 95 97.6 Lab Test 06/13/25 20:43 06/13/25 18:31 06/13/25 17:03 Range/Units Troponin I High Sensitivity < 3 L 5 < 3 L </=54 ng/L White Blood Count 9.4 4.4-10.8 10^3/uL Red Blood Count 4.89 4.5-5.90 10^6/uL Hemoglobin 15.3 13.5-17.5 g/dL Hematocrit 45.1 41.0-53.0 % Mean Corpuscular Volume 92.3 80.0-100.0 fL Mean Corpuscular Hemoglobin 31.4 28.0-32.0 pg Mean Corpuscular Hemoglobin Concent 33.9 32.0-36.0 g/dL Red Cell Distribution Width 13.4 11.8-14.3 % Platelet Count 337 140-450 10^3/uL Mean Platelet Volume 8.7 6.9-10.8 fL Neutrophils (%) (Auto) 63.3 37.0-80.0 % Lymphocytes (%) (Auto) 18.2 10.0-50.0 % Monocytes (%) (Auto) 11.4 0.0-12.0 % Eosinophils (%) (Auto) 6.4 0.0-7.0 % Basophils (%) (Auto) 0.7 0.0-2.0 % Neutrophils # (Auto) 5.9 1.6-8.6 10 ^3/uL Lymphocytes # (Auto) 1.7 0.4-5.4 10 ^3/uL Monocytes # (Auto) 1.1 0-1.3 10 ^3/uL Eosinophils # (Auto) 0.6 0-0.8 10 ^3/uL Basophils # (Auto) 0.1 0-0.2 10 ^3/uL Nucleated Red Blood Cells 0.0 % Sodium Level 138 136-145 mmol/L Potassium Level 3.9 3.5-5.1 mmol/L Chloride Level 103 98-107 mmol/L Carbon Dioxide Level 24 20-31 mmol/L Anion Gap 11 5-15 Blood Urea Nitrogen 19 9-23 mg/dL Creatinine 0.82 0.700-1.30 mg/dL Glomerular Filtration Rate Calc 117 >90 mL/min BUN/Creatinine Ratio 23.2 H 10.0-20.0 Serum Glucose 127 H 74-106 mg/dL Lactic Acid Level 1.4 0.4-2.0 mmol/L Calcium Level 9.0 8.7-10.4 mg/dL Total Bilirubin 0.6 0.2-1.0 mg/dL Aspartate Amino Transferase (AST) 49 H 13-40 U/L Alanine Aminotransferase (ALT) 46 H 7-40 U/L Alkaline Phosphatase 105 46-116 U/L Creatine Kinase 357 H 46-171 U/L Total Protein 7.5 5.7-8.2 g/dL Albumin 4.7 3.2-4.8 g/dL PATIENT: RE NELSONCCT: [id number]: [id number] : 1990 LOC: ER ROOM / BED: / AGE / SEX: 34 / M ADM STATUS: REG ER SERVICE 1635 ORDERING PHYSICIAN: MARIO MCALLISTER DO PROCEDURE(s): CXRP - CHEST PORTABLE REASON: sob/asthma ORDER NUMBER(s): [id number], ACCESSION NUMBER(s): [id number] EXAM: XY CHEST PORTABLE HISTORY: sob/asthma COMPARISON: XY CHEST TWO VIEWS ROUTINE on DOS: 04/16/25, XY CHEST TWO VIEWS ROUTINE on DOS: 03/20/23 TECHNIQUE: Portable AP view of the chest was performed. FINDINGS: No pneumothorax, consolidative infiltrates, or pulmonary edema. There is central peribronchial thickening. The heart is not enlarged. There are multiple old right rib fractures. IMPRESSION: Reactive airways disease. The lungs are otherwise clear. ATED BY: PASTORA HUNG MD DICTATED DATE/TIME: 06/13/251699 SIGNED BY: PASTORA HUNG MD SIGNED DATE/TIME: 06/13/251699 Time of 1ST Reevaluation: 16:56 Reevaluation 1ST: Unchanged Patient Education/Counseling: Diagnosis, Treatment Family Education/Counseling: No Family Present Comments MDM: patient presented with the above HPI.--dyspnea/asthma exacerbation----workup was initiated. patient was found with the above mentioned diagnosis. the following medications were ordered: please refer to order lists of meds and tests obtained by myself Dr. Mcallister. Patient ED course and VS have been stabilized. Patient has been reassessed in the ED and remained in a stable condition. Pertinent incidental findings were discussed with the patient and/or family. Patient/family voices understanding and is agreeable with plan. Patient has been observed in the ED adequate length of time to insure improvement/stability. Escalation of care considered: Consideration of escalation to observation or admission Patient was DISCHARGED home in a stable condition. All the reports of any imaging studies that were ordered by myself were reviewed by myself. Departure 1 Departure Time of Disposition: 18:30 Impression: Primary Impression: Asthma exacerbation Additional Impressions: Medication refill Heat exhaustion Disposition: 01 HOME / SELF CARE / HOMELESS Condition: Stable Additional Instructions: Additional instructions: You MUST follow-up with your primary care/family doctor in 1 to 2 days. If you are unable to see your primary care/family doctor, please return to our emergency room for re-assessment and re-evaluation in 1 to 2 days. Return to the emergency room here in our facility or to the nearest ER [facility] if your symptoms change or worsen. CONSULTATIONS: you MUST Follow-up for consultation as soon as possible with: -pulmonology in 1-2 days. Please call for appointment. You MUST call the consultants office yourself to make an appointment. You may need to arrange that through your insurance and/or your primary/family doctor. If you are unable to see the consultants intern in 1 to 2 days, you must return to our emergency room (or any other ER of your choice) for re-assessment and re- evaluation. Adequate fluid hydration. Avoid excessive heat exposure. e-Prescriptions Prednisone (Prednisone) 20 Mg Tab 20 MG PO DAILY for 5 Days, #5 TAB Prov: MARIO MCALLISTER DO 06/13/25 Albuterol Sulfate (Albuterol Sulfate Hfa) 108 Mcg/Act Aer 108 MCG IN Q4HPRN PRN for 20 Days, #2 AER Prov: MARIO MCALLISTER DO 06/13/25 Discharged With: Self Critical Care Note Critical Care Time?: No I personally scribed for MARIO MCALLISTER DO ([email or web address]) on 06/13/25 at 16:42. Electronically submitted by Jonny Valdivia ([email or web address]). I personally scribed for MARIO MCALLISTER DO ([email or web address]) on 06/13/25 at 18:41. Electronically submitted by Jonny Valdivia ([email or web address]). MARIO MCALLISTER DO Jun 13, 2025 16:42
[2025-06-13] MEDS: IPRATROPIUM BROM 0.5 MG/2.5ML INH SOL NEB ONE (16:47)
[2025-06-13] MEDS: ALBUTEROL SULF 2.5 MG/0.5ML(0.5%) NEB SOLN NEB ONE (16:47)
--- NOTE | 2025-06-13 17:02 | DVH ---
EXAM: XY CHEST PORTABLE HISTORY: sob/asthma COMPARISON: XY CHEST TWO VIEWS ROUTINE on DOS: 04/16/25, XY CHEST TWO VIEWS ROUTINE on DOS: 03/20/23 TECHNIQUE: Portable AP view of the chest was performed. FINDINGS: No pneumothorax, consolidative infiltrates, or pulmonary edema. There is central peribronchial thicke lance. The heart is not enlarged. There are multiple old right rib fractures. IMPRESSION: Reactive airways disease. The lungs are otherwise clear.
[2025-06-13] MEDS: SODIUM CHLORIDE 0.9% 1,000 ML IV ONE ×2 (17:21→19:02)
[2025-06-13] MEDS: methylPREDNISolone SOD SUCC 125 MG/2 ML VL IV ONE (17:21)
[2025-06-13 17:22] VITALS: PULSE 109; RESP 18; O2SAT 92
[2025-06-13 17:24] LABS: Hematocrit 45.1 % (41.0-53.0); Hemoglobin 15.3 g/dL (13.5-17.5); Mean Corpuscular Hemoglobin 31.4 pg (28.0-32.0); Mean Corpuscular Volume 92.3 fL (80.0-100.0); Nucleated Red Blood Cells % 0.0 %
[2025-06-13 17:41] LABS: Albumin 4.7 g/dL (3.2-4.8); Alkaline Phosphatase 105 U/L (46-116); Anion Gap 11 (5-15); BUN/Creatinine Ratio 23.2 (10.0-20.0); Blood Urea Nitrogen 19 mg/dL (9-23); Calcium 9.0 mg/dL (8.7-10.4); Carbon Dioxide 24 mmol/L (20-31); Chloride 103 mmol/L (98-107); Potassium 3.9 mmol/L (3.5-5.1); Sodium 138 mmol/L (136-145); Total Protein 7.5 g/dL (5.7-8.2)
[2025-06-13 17:42] LABS: Alanine Aminotransferase 46 U/L (7-40); Bilirubin, Total 0.6 mg/dL (0.2-1.0); Creatine Kinase IFCC 357 U/L (46-171); Glucose 127 mg/dL (74-106)
[2025-06-13] MEDS ORDERED: PRED20TA2 PO ×2 (18:36→18:37)
[2025-06-13] MEDS ORDERED: ALBU108A5 IN ×2 (18:36→18:37)
[2025-06-13 21:58] VITALS: BP 124/81; TEMP 97.5
[2025-06-13 22:01] VITALS: PULSE 66; RESP 16; O2SAT 98
--- NOTE | 2025-06-19 12:12 | ECG ---
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
== END 2025-06-13 22:02 | disposition home or self-care (01) ==
LOC: EDBD 16:19 → ER 16:19 → EDUNIT# 16:19 → ER 22:02
DX: R06.02 Shortness of breath (principal); J45.901 Unspecified asthma with (acute) exacerbation; Z76.0 Encounter for issue of repeat prescription
CPT/HCPCS: 36415; 71045; 80053; 82550; 83605; 84484; 85025; 94640; 96361; 96374; 99285; J2919; 93005

== ENCOUNTER 2025-08-24 12:39 | Emergency (ER) | payer MEDICAID ==
[~2025-08-24] VITALS: Ht 162.6 cm; Wt 63.3 kg
--- NOTE | 2025-08-24 13:14 | ED.PDOC ---
SOB-HPI HPI Comments HPI: Past Medical history: Asthma Past Surgical history: Denies Any Medications: Inhaler Social History: Denies smoking use. Uses Methamphetamine, MJ, Occasional Alcohol Use. Allergies: NKDA HPI: Poor Historian. 35-YEAR-OLD MALE PRESENTS TO EMERGENCY DEPARTMENT FOR ONE DAY HISTORY OF SHORTNESS OF BREATH. PATIENT IS OUT OF HIS ALBUTEROL AND CAME HERE FOR MEDICATION REFILL. Patient says he has history of asthma. Patient does not appear to be in respiratory distress. Patient appears homeless. Past Medical History: Asthma Past Surgical History: Denies any Social history: Weekly use of alcohol, marijuana, methamphetamine REVIEW OF SYSTEMS: CONSTITUTIONAL: Denies acute: fever, diaphoresis, chills, generalized weakness. HEAD: Denies acute: headache, photophobia Eyes: Denies acute: Double vision, vision loss, eye pain, eye discharge. EARS: Denies acute: tinnitus, hearing loss, ear discharge, ear pain, THROAT: Denies acute: sore throat, swelling, difficulty swallowing , pain with swallowing, change in voice. NECK: Denies acute: neck pain, neck swelling, stiff neck. HEART: Denies acute : chest pain, palpitations, LUNGS: Denies acute: , wheezing, cough, hemoptysis ABDOMEN: Denies acute: abdominal pain, Nausea, Vomiting, diarrhea, melena , hematemesis, hematochezia SKIN: Denies acute: rash, redness, lesions, itchiness. EXTREMITIES: Denies acute: calf pain, numbness, tingling, weakness, denies pain in extremity. Denies acute: Low back pain. Neuro: Denies acute: focal neurological deficit, motor or sensory focal neurological deficit, tremors, seizure like activity, confusion, dizziness, change in mental status, loss of bowel or bladder function, cauda equina like symptoms. : Denies acute: dysuria, hematuria, flank pain, increase in urinary frequency. PSYCH: Denies acute: hallucination, suicidal ideation, homicidal ideation. PHYSICAL EXAM: General: -----NO---acute distress, awake and alert. Head: normocephalic, atraumatic. Neck: supple, trachea is midline, no swelling. Throat: Normal phonation. Eyes:, no erythema, no purulent discharge, no proptosis, no icterus. Heart: regular rate, regular rhythm, no significant murmur appreciated. Lungs: no apparent respiratory distress, Able to speak in full sentences. BILATERAL wheezing, no rhonchi, no crackles. No stridors Abdomen: non tender to palpation, non distended, soft, no guarding, no rebound, + bowel sounds. Neuro: Awake, Alert, oriented to name, self, situation, follows commands GCS=15. Speech is normal. Skin: no petechia, no purpura, no cyanosis, non-pale, not jaundice. Lower extremities: --no - Pitting edema no deformity, no focal swelling, no calf TTP. Makes eye contact. moves all four extremities. Face: no apparent facial droop. Ambulating in the ED independently. ED COURSE: DISCLAIMER: This medical document was created using an electronic medical record system with voice recognition software and computerized dictation system. Although this document has been carefully reviewed, there might still be some phonetic and typographical errors. Occasional wrong-word or "sound-alike" substitutions may have occurred due to the inherent limitations of voice recognition software. These areas are purely typographical due to imperfections of the software programs and do not reflect any compromise in the patient's medical care. Please read the chart carefully and recognize, using context, where these substitutions have occurred. Time Seen by MD: 13:00 Primary Care Provider: NONE Reviewed notes: Nurses Notes, Medications, Allergies Information Source: Patient Mode of Arrival: EMS Severity: Mild Timing: Hours Duration: Since onset, Hours Context: With Light Exertion PE Risk Factors: None History of: Asthma Prehospital treatment: None Past Medical History PAST MEDICAL HISTORY: Asthma Surgical History: Denies all surgeries Family History Family History: Reviewed,noncontributory to illness, Unknown Social History Smoker: Non-Smoker Alcohol: Denies ETOH Use Drugs: Marijuana, Methamphetamine Lives In: Homeless Was a procedure done? Was a procedure done?: No Differential Dx Differential Diagnosis: Asthma, URI, Other (DDx include ACS, unstable angina, anxiety, PE, pneumothroax, neoplasm, cardiac ischemia, COPD, asthma, CHF, pleural effusion, tobacco abuse, pneumonia, hypoxia, hypercapnia, anemia., infection/sepsis., pulmonary edema. Asthma, Cardiac tamponade, infection.) X-Ray, Labs, Meds, VS Vital Signs Date Time Temp Pulse Resp B/P (MAP) Pulse Ox O2 Delivery O2 Flow Rate FiO2 08/24/25 14:40 84 18 97 Room Air 08/24/25 14:40 97.5 84 18 118/68 (85) 97 97.5 08/24/25 13:37 16 96 Room Air* 0 21 08/24/25 12:41 98.9 92 20 127/85 100 98.9 [place] [address] Ph: [phone] DIAGNOSTIC IMAGING Diagnostic Imaging Report : [id number] Signed PATIENT: MARYJO NELSON ACCT: [id number] UNIT: [id number] : 1990 LOC: ER ROOM / BED: / AGE / SEX: 35 / M ADM STATUS: REG ER SERVICE 1310 ORDERING PHYSICIAN: MARIO MCALLISTER DO PROCEDURE(s): CXRP - CHEST PORTABLE REASON: SOB ORDER NUMBER(s): [id number], ACCESSION NUMBER(s): [id number] XY CHEST PORTABLE, HISTORY: SOB COMPARISON: XY CHEST PORTABLE on DOS: 06/13/25, XY CHEST TWO VIEWS ROUTINE on DOS: 04/16/25, XY CHEST TWO VIEWS ROUTINE on DOS: 03/20/23 XY CHEST PORTABLE on DOS: 06/13/25, XY CHEST TWO VIEWS ROUTINE on DOS: 04/16/25, XY CHEST TWO VIEWS ROUTINE on DOS: 03/20/23 TECHNICAL DATA: 1 view of the chest was obtained. FINDINGS: Lines and tubes: None Cardiomediastinal silhouette: normal Pulmonary vasculature: normal Lung expansion: normal Lung airspace: normal Lung interstitium: normal Pleura: normal Pneumothorax: no Bones: Unremarkable Other: no IMPRESSION: No acute intrathoracic abnormality. ATED BY: LEONIDES MANZANARES MD DICTATED DATE/TIME: 08/24/251334 SIGNED BY: LEONIDES MANZANARES MD SIGNED DATE/TIME: 08/24/251334 CC: Time of 1ST Reevaluation: 13:30 Reevaluation 1ST: Unchanged Patient Education/Counseling: Diagnosis, Treatment Family Education/Counseling: Other Comments Patient refused the Solu-Medrol. MDM: patient presented with the above HPI.--asthma exacerbation----workup was initiated. patient was found with the above mentioned diagnosis. the following medications were ordered: please refer to order lists of meds and tests obtained by myself Dr. Mcallister. Patient ED course and VS have been stabilized. Patient has been reassessed in the ED and remained in a stable condition. Pertinent incidental findings were discussed with the patient and/or family. Patient/family voices understanding and is agreeable with plan. Patient has been observed in the ED adequate length of time to insure improvement/stability. Escalation of care considered: Consideration of escalation to observation or admission Patient was DISCHARGED home in a stable condition. All the reports of any imaging studies that were ordered by myself were reviewed by myself. SEPSIS Sepsis Screen Physician Orders Chest Portable (08/24/25 13:10) Vital Signs Date Time Temp Pulse Resp B/P (MAP) Pulse Ox O2 Delivery O2 Flow Rate FiO2 08/24/25 14:40 84 18 97 Room Air 08/24/25 14:40 97.5 84 18 118/68 (85) 97 97.5 08/24/25 13:37 16 96 Room Air* 0 21 08/24/25 12:41 98.9 92 20 127/85 100 98.9 Departure 1 Departure Time of Disposition: 14:12 Impression: Primary Impression: Medication refill Additional Impression: Mild asthma exacerbation Disposition: 01 HOME / SELF CARE / HOMELESS Condition: Stable Additional Instructions: Additional instructions: Please read all instructions provided in this packet carefully. You MUST follow-up with your primary care/family doctor in 1 to 2 days. If you are unable to see your primary care/family doctor, please return to our emergency room for re-assessment and re-evaluation in 1 to 2 days. Return to the emergency room here in our facility or to the nearest ER [facility] if your symptoms change or worsen. CONSULTATIONS: you MUST Follow-up for consultation as soon as possible with: --pulmonology in 1-2 days. Please call for appointment You MUST call the consultants office yourself to make an appointment. You may need to arrange that through your insurance and/or your primary/family doctor. If you are unable to see the polymer materials consultant in 1 to 2 days, you must return to our emergency room (or any other ER of your choice) for re-assessment and re- evaluation. Adequate fluid hydration. Although you have been discharged from the Emergency Department, this does not mean that you have a "clean bill of health". No definitive diagnosis for your symptoms has been made today. It is possible that you are in the process of developing a serious illness. This is why you must return to the ED without fail if any new or worsening symptoms develop. Avoid all drugs and tobacco and alcohol e-Prescriptions Prednisone (Prednisone) 20 Mg Tab 40 MG PO DAILY for 5 Days, #10 TAB Prov: MARIO MCALLISTER DO 08/24/25 Albuterol Sulfate (Albuterol Sulfate Hfa) 108 Mcg/Act Aer 108 MCG IN Q4HPRN PRN for 7 Days, #2 AER Prov: MARIO MCALLISTER DO 08/24/25 Discharged With: Self Critical Care Note Critical Care Time?: No Stability Stability form required: No Heart Score Heart Score: Heart Score Response (Comments) Value History N/A 0 EKG N/A 0 Age N/A 0 Risk Factors N/A 0 Troponin N/A 0 Total 0 I personally scribed for MARIO MCALLISTER DO ([email or web address]) on 08/24/25 at 13:14. Electronically submitted by Joesph Hernandez ([employer]). I personally scribed for MARIO MCALLISTER DO ([email or web address]) on 08/24/25 at 14:38. Electronically submitted by Joesph Hernandez ([employer]). MARIO MCALLISTER DO Aug 24, 2025 13:14
[2025-08-24] MEDS: methylPREDNISolone SOD SUCC 40 MG/ML VL IM ONE (13:15)
[2025-08-24] MEDS: IPRATROPIUM BROM 0.5 MG/2.5ML INH SOL NEB ONE (13:36)
[2025-08-24] MEDS: ALBUTEROL SULF 2.5 MG/0.5ML(0.5%) NEB SOLN NEB ONE (13:36)
--- NOTE | 2025-08-24 13:38 | DVH ---
XY CHEST PORTABLE, HISTORY: SOB COMPARISON: XY CHEST PORTABLE on DOS: 06/13/25, XY CHEST TWO VIEWS ROUTINE on DOS: 04/16/25, XY CHEST T WO VIEWS ROUTINE on DOS: 03/20/23 XY CHEST PORTABLE on DOS: 06/13/25, XY CHEST TWO VIEWS ROUTINE on DOS: 04/16/25, XY CHEST TWO VIEWS ROU TARAS on DOS: 03/20/23 TECHNICAL DATA: 1 view of the chest was obtained. FINDINGS: Lines and tubes: None Cardiomediastinal silhouette: normal Pulmonary vasculature: normal Lung expansion: normal Lung airspace: normal Lung interstitium: normal Pleura: normal Pneumothorax: no Bones: Unremarkable Other: no IMPRESSION: No acute intrathoracic abnormality.
[2025-08-24 14:40] VITALS: BP 118/68; PULSE 84; RESP 18; TEMP 97.5; O2SAT 97
== END 2025-08-24 15:14 | disposition home or self-care (01) ==
LOC: EDBD 12:39 → ER 12:39
DX: J45.901 Unspecified asthma with (acute) exacerbation (principal); F12.90 Cannabis use, unspecified, uncomplicated; F15.90 Other stimulant use, unspecified, uncomplicated; Z76.0 Encounter for issue of repeat prescription
CPT/HCPCS: 71045; 94640

== ENCOUNTER 2025-08-29 08:44 | Emergency (ER) | payer MEDICAID ==
[~2025-08-29] VITALS: Ht 177.8 cm; Wt 77.0 kg
--- NOTE | 2025-08-29 09:03 | ECG ---
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
--- NOTE | 2025-08-29 09:27 | ED.PDOC ---
History of Present Illness HPI Comments 35-year-old male [employer] with prior medical history of asthma and then chief complaint shortness a breath. EMS report the patient was walking down a [place] when he calls 911 stating on have a shortness a breath associated with the wheezing. When EMS arrived on scene the patient was satting 80% room air and was given DuoNeb 6 L of O2, patient is currently satting at 100% an ambulance [facility]. Denies any other symptoms at this time. Denies chills, fever, N/V/D, CP. No other associated symptoms, modifiers, recent injuries or sick contacts present at this time. Time Seen by MD: 09:25 Primary Care Provider: NONE Reviewed Notes: Nurses Notes, Photocomposing Keyboard Operator Notes, Medications, Allergies Allergies: Coded Allergies: NO KNOWN ALLERGIES (Unverified , 05/22/12) Home Meds Active Scripts Prednisone (Prednisone) 20 Mg Tab, 40 MG PO DAILY for 5 Days, #10 TAB Prov:MARIO MCALLISTER DO 08/24/25 Albuterol Sulfate (Albuterol Sulfate Hfa) 108 Mcg/Act Aer, 108 MCG IN Q4HPRN PRN for 7 Days, #2 AER Prov:MARIO MCALLISTER DO 08/24/25 Prednisone (Prednisone) 20 Mg Tab, 20 MG PO DAILY for 5 Days, #5 TAB Prov:MARIO MCALLISTER DO 06/13/25 Albuterol Sulfate (Albuterol Sulfate Hfa) 108 Mcg/Act Aer, 108 MCG IN Q4HPRN PRN for 20 Days, #2 AER Prov:MARIO MCALLISTER DO 06/13/25 Budesonide-Formoterol Fumarate (Budesonide/Formoterol Fum 80-4.5 Mcg/Act) 1 Aer Aer, 1 AER IN DAILY for 30 Days, #1 AER 2 Refills Prov:BETSY MARTINEZ FIBROUS WALLBOARD INSPECTOR 04/16/25 Albuterol Sulfate (Albuterol Sulfate Hfa) 108 Mcg/Act Aer, 108 MCG IN TID PRN for 10 Days, #1 AER 2 Refills Prov:BETSY MARTINEZ FIBROUS WALLBOARD INSPECTOR 04/16/25 Prednisone (Prednisone) 20 Mg Tab, 20 MG PO DAILY for 5 Days, #5 MG Prov:CINDY STEARNS MD 03/11/25 Albuterol Sulfate (VENTOLIN MDI) 90 Mcg Ih, 90 MCG IN Q4HPRN PRN for 30 Days, #1 INH Prov:CINDY STEARNS MD 03/11/25 Albuterol Sulfate (VENTOLIN MDI) 90 Mcg Ih, 90 MCG IN QID PRN for 7 Days, #1 INH Prov:DARON COLE MD 09/22/24 Albuterol Sulfate (VENTOLIN MDI) 90 Mcg Ih, 1 PUFF IN Q4HR, #1 INH As needed for shortness of breath or wheeze Prov:KEIRA PERALES HOSPITALITY INTERN 08/30/23 Ibuprofen (Ibuprofen) 800 Mg Tab, 1 TAB PO TID PRN, #30 TAB 0 Refills Prov:KATIA NAVA 04/13/23 Benzocaine (Dental) (HURRICAINE SPRAY) 1 Spr Sp, 1 SPR MT QIDP, #1 SPRAY 0 Refills Prov:KATIA NAVA 04/13/23 Reported Medications Albuterol Sulfate (Ventolin Hfa) Aer 09/18/12 Information Source: Patient, Emergency Med Personnel Mode of Arrival: EMS Severity: Moderate Timing: Hours Duration: Since onset, Hours Prehospital treatment: None Past Medical History PAST MEDICAL HISTORY: Asthma Surgical History: Denies all surgeries Family History Family History: Reviewed,noncontributory to illness, Unknown Social History Smoker: Non-Smoker Alcohol: Denies ETOH Use Drugs: Marijuana, Methamphetamine Lives In: Homeless Constitutional: denies: chills, diaphoresis, fatigue, fever, malaise, sweats, weakness, others EENTM: denies: blurred vision, double vision, ear bleeding, ear discharge, ear drainage, ear pain, ear ringing, eye pain, eye redness, hearing loss, mouth pain, mouth swelling, nasal discharge, nose bleeding, nose congestion, nose pain, photophobia, tearing, throat pain, throat swelling, voice changes, others Respiratory: reports: shortness of breath, wheezing; denies: cough, hemoptysis, orthopnea, SOB at rest, SOB with excertion, stridor, others Cardiovascular: denies: chest pain, dizzy spells, diaphoresis, Dyspnea on exertion, edema, irregular heart beat, left arm pain, lightheadedness, palpitations, PND, syncope, others Gastrointestinal: denies: abdomen distended, abdominal pain, blood streaked bowels, constipated, diarrhea, dysphagia, difficulty swallowing, hematemesis, melena, nausea, poor appetite, poor fluid intake, rectal bleeding, rectal pain, vomiting, others Genitourinary: denies: burning, dysuria, flank pain, frequency, hematuria, incontinence, penile discharge, penile sore, pain, testicle pain, testicle swelling, urgency, others Neurological: denies: dizziness, fainting, headache, left sided numbness, left sided weakness, numbness, paresthesia, pre-existing deficit, right sided numbness, right sided weakness, seizure, speech problems, tingling, tremors, weakness, others Musculoskeletal: denies: back pain, gout, joint pain, joint swelling, muscle pain, muscle stiffness, neck pain, others Integumetry: denies: bruises, change in color, change in hair/nails, dryness, laceration, lesions, lumps, rash, wounds, others Allergic/Immunocompromised: denies: Difficulty Healing, Frequent Infections, Hives, Itching, others Hematologic/Lymphatic: denies: anemia, blood clots, easy bleeding, easy bruising, swollen glands, others Endocrine: denies: excessive hunger, excessive sweating, excessive thirst, excessive urination, flushing, intolerance to cold, intolerance to heat, unexplained weight gain, unexplained weight loss, others Psychiatric: denies: anxiety, bipolar disorder, depression, hopeless, panic disorder, schizophrenia, sleepless, suicidal, others All Other Systems: Reviewed and Negative Physical Exam General Appearance: Moderate Distress, Normal HEENT: Normal ENT Inspection, Pharynx Normal, TMs Normal Neck: Full Range of Motion, Non-Tender, Normal, Normal Inspection Respiratory: Chest Non-Tender, Lungs Clear, No Accessory Muscle Use, No Respiratory Distress, Normal Breath Sounds Cardiovascular: No Edema, No JVD, No Murmur, No Gallop, Normal Peripheral Pulses, Regular Rate/Rhythm Breast Exam: Deferred Gastrointestinal: No Organomegaly, Non Tender, No Pulsatile Mass, Normal Bowel Sounds, Soft Genitalia: Deferred Pelvic: Deferred Rectal: Deferred Extremities: No calf tenderness, Normal capillary refill, Normal inspection, Normal range of motion, Non-tender, No pedal edema Musculoskeletal : Apperance: Normal Neurologic: Alert, carpenter bridge II-XII nml as Tested, No Motor Deficits, Normal Affect, Normal Mood, No Sensory Deficits Cerebellar Function: Normal Reflexes: Normal Skin: Dry, Normal Color, Warm Peripheral Pulses: 3+ Radial (R), 3+ Radial (L) Lymphatic: No Adenopathy Was a procedure done? Was a procedure done?: No EKG EKG : Pulse Rate (adult): 96 [place]: Normal Cardiac Rhythm: NSR Block: None Hypertrophy: None ST: Normal Differential Dx Considerations may include: Anemia Electrolyte imbalance X-Ray, Labs, Meds, VS Vital Signs Date Time Temp Pulse Resp B/P (MAP) Pulse Ox O2 Delivery O2 Flow Rate FiO2 08/29/25 10:01 91 16 98 Nasal Cannula* 2 28 08/29/25 10:01 98.0 91 16 102/63 (76) 95 98.0 08/29/25 09:54 16 94 Room Air* 0 21 08/29/25 09:27 96 08/29/25 08:53 97.7 97 26 138/94 99 97.7 08/29/25 08:49 96 Lab Test 08/29/25 09:21 Range/Units White Blood Count 4.5 4.4-10.8 10^3/uL Red Blood Count 4.53 4.5-5.90 10^6/uL Hemoglobin 14.1 13.5-17.5 g/dL Hematocrit 41.5 41.0-53.0 % Mean Corpuscular Volume 91.5 80.0-100.0 fL Mean Corpuscular Hemoglobin 31.2 28.0-32.0 pg Mean Corpuscular Hemoglobin Concent 34.1 32.0-36.0 g/dL Red Cell Distribution Width 13.4 11.8-14.3 % Platelet Count 351 140-450 10^3/uL Mean Platelet Volume 8.0 6.9-10.8 fL Neutrophils (%) (Auto) 47.0 37.0-80.0 % Lymphocytes (%) (Auto) 34.1 10.0-50.0 % Monocytes (%) (Auto) 9.5 0.0-12.0 % Eosinophils (%) (Auto) 8.4 H 0.0-7.0 % Basophils (%) (Auto) 1.0 0.0-2.0 % Neutrophils # (Auto) 2.1 1.6-8.6 10 ^3/uL Lymphocytes # (Auto) 1.5 0.4-5.4 10 ^3/uL Monocytes # (Auto) 0.4 0-1.3 10 ^3/uL Eosinophils # (Auto) 0.4 0-0.8 10 ^3/uL Basophils # (Auto) 0 0-0.2 10 ^3/uL Nucleated Red Blood Cells 0.0 % Current Medications Medications (Trade) Dose Ordered Sig/Jaison Route Start Time Stop Time Status Last Admin Methylprednisolone Sodium Succinate (Solu Medrol) 125 mg ONCE ONCE IV 08/29/25 09:15 08/29/25 09:16 DC 08/29/25 10:09 Albuterol (Ventolin Medneb) 5 mg ONCE ONCE NEB 08/29/25 09:15 08/29/25 09:16 DC 08/29/25 09:54 Ipratropium [place] (Atrovent Medneb) 0.5 mg ONCE ONCE NEB 08/29/25 09:15 08/29/25 09:16 DC 08/29/25 09:54 CHEST RADIOGRAPH IMPRESSION: No acute disease. Patient alert. Came in because of shortness a breath. On examination good lung sounds. Vitals stable. Was given steroid. Was given breathing treatment. Ambulating without difficulty. Chest x-ray reviewed does not show any acute process. WBC within normal limits. Hemoglobin within normal limits. Heart rate within normal limits. No leg swelling. Saturation pristine on room air. Reviewed his previous visit. Counseled patient on effects of smoking cigarettes for 15 minutes. Early pneumonitis. Was given prescription of prednisone amoxicillin antibiotic. EKG reviewed does not show any acute changes. Explained to the patient. Was told to follow up with his primary care physician. Was told to come back if there is any problem. Time of 1ST Reevaluation: 09:55 Reevaluation 1ST: Improved Patient Education/Counseling: Diagnosis, Treatment, Prognosis Family Education/Counseling: No Family Present SEPSIS Sepsis Screen Physician Orders Chest Portable (08/29/25 09:12) Vital Signs Date Time Temp Pulse Resp B/P (MAP) Pulse Ox O2 Delivery O2 Flow Rate FiO2 08/29/25 10:01 91 16 98 Nasal Cannula* 2 28 08/29/25 10:01 98.0 91 16 102/63 (76) 95 98.0 08/29/25 09:54 16 94 Room Air* 0 21 08/29/25 09:27 96 08/29/25 08:53 97.7 97 26 138/94 99 97.7 08/29/25 08:49 96 Laboratory Tests Test 08/29/25 09:21 White Blood Count 4.5 10^3/uL (4.4-10.8) Medications Medications Dose Ordered Sig/Jaison Route Start Time Stop Time Status Last Admin Dose Admin Albuterol 5 mg ONCE ONCE NEB 08/29/25 09:15 08/29/25 09:16 DC 08/29/25 09:54 Ipratropium [place] 0.5 mg ONCE ONCE NEB 08/29/25 09:15 08/29/25 09:16 DC 08/29/25 09:54 Methylprednisolone Sodium Succinate 125 mg ONCE ONCE IV 08/29/25 09:15 08/29/25 09:16 DC 08/29/25 10:09 Departure 1 Departure Time of Disposition: 11:03 Impression: Primary Impression: Pneumonitis Disposition: 01 HOME / SELF CARE / HOMELESS Condition: Good e-Prescriptions Prednisone (Prednisone) 10 Mg Tab 10 MG PO DAILY for 5 Days, #5 MG Prov: BARTOLO KINGSLEY MD 08/29/25 Amoxicillin Trihydrate (Amoxicillin) 500 Mg Tab 1 TAB PO TID for 5 Days, #15 TAB Prov: BARTOLO KINGSLEY MD 08/29/25 Discharged With: Self Critical Care Note Critical Care Time?: No Stability Stability form required: No Heart Score Heart Score: Heart Score Response (Comments) Value History Slightly Suspicious 0 EKG Normal 0 Age <45 0 Risk Factors No known risk factors 0 Troponin Normal limit 0 Total 0 I personally scribed for BARTOLO KINGSLEY MD ([email or web address]) on 08/29/25 at 09:27. Electronically submitted by Joesph Hernandez ([email or web address]). I personally scribed for BARTOLO KINGSLEY MD ([email or web address]) on 08/29/25 at 10:34. Electronically submitted by Leora Rossi ([email or web address]). BARTOLO KINGSLEY MD Aug 29, 2025 09:27
--- NOTE | 2025-08-29 09:47 | DVH ---
CHEST RADIOGRAPH Indication: sob Technique: Single frontal view of the chest was obtained COMPARISON: XY CHEST PORTABLE on DOS: 08/24/25, XY CHEST PORTABLE on DOS: 06/13/25, XY CHEST TWO VIEWS ROUTINE on DOS: 04/16/25, XY CHEST TWO VIEWS ROUTINE on DOS: 03/20/23 FINDINGS: Lines and Tubes: None Lungs: Clear Pleura: No effusion. No pneumothorax. Cardiomediastinal contours: Unremarkable Bones: Unremarkable IMPRESSION: No acute disease.
[2025-08-29 09:52] LABS: Hematocrit 41.5 % (41.0-53.0); Hemoglobin 14.1 g/dL (13.5-17.5); Mean Corpuscular Hemoglobin 31.2 pg (28.0-32.0); Mean Corpuscular Volume 91.5 fL (80.0-100.0); Nucleated Red Blood Cells % 0.0 %
[2025-08-29] MEDS: ALBUTEROL SULF 2.5 MG/0.5ML(0.5%) NEB SOLN NEB ONE ×2 (09:54→11:43)
[2025-08-29] MEDS: IPRATROPIUM BROM 0.5 MG/2.5ML INH SOL NEB ONE (09:54)
[2025-08-29 10:01] VITALS: PULSE 91; RESP 16; O2SAT 98
[2025-08-29] MEDS: methylPREDNISolone SOD SUCC 125 MG/2 ML VL IV ONE (10:09)
[2025-08-29] MEDS ORDERED: PRED10TA PO (11:04)
[2025-08-29] MEDS ORDERED: AMOX500T3 PO (11:04)
[2025-08-29 11:54] VITALS: BP 138/78; PULSE 78; RESP 16; TEMP 98.9; O2SAT 97
== END 2025-08-29 11:57 | disposition home or self-care (01) ==
LOC: ER 08:44 → EDBD 08:44 → ER 11:57
DX: J18.9 Pneumonia, unspecified organism (principal); F15.90 Other stimulant use, unspecified, uncomplicated; F17.210 Nicotine dependence, cigarettes, uncomplicated; J45.909 Unspecified asthma, uncomplicated
CPT/HCPCS: 36415; 71045; 85025; 93005; 94640; 96374; 99285; J2919